=== PATIENT | male | born 1985 | race Caucasian/White ===

== ENCOUNTER 2024-12-14 11:22 | Emergency (ER) | payer OTHER, SELFPAY ==
[2024-12-14 11:29] VITALS: BP 150/91
[2024-12-14 12:01] VITALS: BP 151/75
--- NOTE | 2024-12-14 12:59 | ED.GENMED ---
History of Present Illness
General
Chief Complaint: Heart Rate Problem
Time Seen by Provider: 12/14/24 12:03
History of Present Illness
History of Present Illness:
39-year-old male with history of hypertension presenting to the emergency department for palpitations. Patient reports palpitations on and off for the past few days. Noticed the palpitations particularly last night. Denies any present
palpitations. Reports similar symptoms about 2 years ago, was seen in the hospital and recommended to follow-up with cardiology. He never followed up. Denies any known cardiac history. Does note that 2 weeks ago he recently started a new
preworkout. Denies associated chest pain. Denies difficulty breathing. Denies history of blood clot, recent surgery, recent travel. Denies additional acute medical complaints
Past History
Past History
ED Past Medical History: HTN
ED Past Surgical History: None
Social History
Tobacco: Non-smoker
Alcohol: None
Phy Exam
Physical Exam
Physical Exam:
General: Well-appearing, no clinical signs of dehydration, nontoxic and in no acute distress
HEENT: protecting airway
Neck: appears supple
CV: Normal heart rate, regular rhythm
Resp: No accessory muscle use, no increased work of breathing, lungs clear to auscultation bilaterally
Abd: No distention
Extremities: No deformities, no swelling
Neuro: alert, no focal neurologic deficit
: deferred
Rectal: deferred
Psych: Normal affect
Skin: Intact
Course
Orders/Labs/Results
Orders:
Orders
12/14/24 11:26
EKG [Electrocardiogram (*1)] Urgent
Reason for Study: Palpitations
EKG- Treatment ONCE
12/14/24 12:56
Basic Metabolic Panel Urgent
Complete Blood Count/With Diff Urgent
D-Dimer Urgent
Troponin I Urgent
Abnormal Lab Results
12/14/24
12:56
WBC 11.1 H 10^3/uL
(4.8-10.8)
Absolute Neuts (auto) 8.2 H 10^3/uL
(1.4-6.5)
Absolute Monos (auto) 0.8 H 10^3/uL
(0.1-0.6)
Lymphocytes % 16.9 L %
(20.5-51.1)
12/14/24 12:56
12/14/24 12:56
Vital Signs
Initial and Last Documented VS:
Initial Vital Signs
Temp Pulse Resp BP Pulse Ox
98.4 F 101 16 150/91 98
12/14/24 11:29 12/14/24 11:29 12/14/24 11:29 12/14/24 11:29 12/14/24 11:29
Last Documented Vital Signs
Temp Pulse Resp BP Pulse Ox
98.4 F 101 16 150/91 97
12/14/24 11:29 12/14/24 11:29 12/14/24 11:29 12/14/24 11:29 12/14/24 13:03
MDM/Problems Addressed
MDM/Problems Addressed:
39-year-old male presenting to the emergency department for palpitations. Vital signs on arrival significant for mild tachycardia which has since resolved without intervention.
On exam patient is resting comfortably, no acute distress. Currently denying any palpitations. EKG obtained, nonischemic, no arrhythmia. Low suspicion for any concerning etiology of symptoms. Does note that he recently started a new preworkout,
could be secondary to caffeine intake. Denies any present chest pain, without concern for ACS. Given presenting tachycardia, cannot satisfy PERC rule, however low suspicion without any PE risk factors. Will screen with laboratory analysis
including D-dimer. Will continue to monitor via groundwater monitoring technician.
14:00- Labs unremarkable. On reassessment patient remained stable. At this time feel that he is stable for discharge, however did encourage outpatient cardiac follow-up given reoccurrence of symptoms, may indicate need for Holter monitor. Also
advised that he stop taking the preworkout. Return precautions discussed and patient verbalized understanding
*Pulse Oximetry
SaO2: 97
Oxygen Mode of Delivery: Room air
Patient hypoxic: no
*EKG
Interpreted by ED Provider?: Yes
EKG Intrepretation Date: 12/14/24
EKG Intrepretation Time: 13:01
Interpretation: normal
Comparison EKG: no changes
Heart Rate: 103
Rate: tachycardiac
Rhythm: sinus
Fertile: normal axis
Interval: normal interval
QRS Pattern: normal QRS
Ischemia: no ischemia
*Critical Care Note
Total Time (30-74mins, 75-104mins- exclusive of procedures): Not Applicable
ED Attending Note
-
Portions of this chart may have been created with voice recognition software.� Occasional wrong word or��sound alike� substitutions may have occurred due to the inherent limitations of voice recognition software.
Discharge Plan
Departure
Patient Disposition: Home (Routine Discharge)
Date of Disposition: 12/14/24
Time of Disposition: 14:04
Patient with high blood pressure during this ER visit?: No
Condition: Good
Discharge Problem:
Heart palpitations
Instructions: Palpitations (DC)
Prescriptions:
No Action
lisinopril 10 mg Tablet
10 mg PO DAILY
Referrals:
Jorje Bliss MD [Active, Cardiology]
Activity Restrictions/Additional Instructions:
You were seen in the emergency department for palpitations
You were found to have reassuring EKG, vital signs, laboratory analysis. We recommend that you follow-up closely with a volunteer patient representative for further assessment and potential Holter monitoring.
Please follow-up closely with your primary care physician.
Return to the emergency department for any worsening of your symptoms, or any development of chest pain, difficulty breathing, abdominal pain with persistent vomiting and inability to tolerate food or liquid by mouth (concern for dehydration),
weakness, headache or confusion, fever greater than 100.4, or any additional symptoms that are concerning to you.
Thank you for choosing [facility].
Interventions
Interventions:
*Risk Screen - Suicide Last Done: 12/14/24 11:29
*General Assessment Last Done: 12/14/24 11:29
*Neglect/Abuse Screening Last Done: 12/14/24 11:29
*ED- Fall Risk Assessment Last Done: 12/14/24 11:29
*ED COVID-19 Vaccine History Last Done: 12/14/24 11:29
*ED Influenza Vaccine History Last Done: 12/14/24 11:29
ED- Cardiac Assessment Last Done: 12/14/24 12:47
ED- Pulmonary Assessment Last Done: 12/14/24 12:47
Discharge Date and Time
Print Language: SLOVAK
[2024-12-14 13:00] VITALS: BP 121/66
[2024-12-14 13:08] LABS: Hematocrit 45.1 % (39.0-52.0); Hemoglobin 15.4 g/dL (13.0-18.0); Mean Corp Hgb Conc. 34.1 g/dL (33.0-37.0); Mean Corpuscular Volume 89.1 fL (80.0-94.0); Nucleated Red Blood Cells % 0 % (-); Platelet Count 225 10^3/uL (130-400); Red Cell Dist. Width 12.3 % (11.5-14.5)
[2024-12-14 13:19] LABS: D-Dimer 0.29 ug/mlFEU (0.00-0.50)
[2024-12-14 13:24] LABS: Blood Urea Nitrogen 19 mg/dl (9-20); Calcium 10.0 mg/dl (8.4-10.2); Carbon Dioxide 26 mmol/L (22-30); Chloride 104 mmol/L (98-107); Glucose 91 mg/dl (70-99); Sodium 135 mmol/L (135-145); eGFR > 60.00
[2024-12-14 13:32] LABS: Troponin I < 0.012 ng/ml
[2024-12-14 14:00] VITALS: BP 113/76
== END 2024-12-14 14:23 | disposition home or self-care (01) ==
LOC: EMR 11:22
PROVIDERS: EMERGENCY PHYSICIAN Student in an Organized Health Care Education/Training Program; FAMILY PHYSICIAN Family Medicine
DX: R00.2 Palpitations (principal); I10 Essential (primary) hypertension
CPT/HCPCS: 99284; 80048; 84484; 85025; 85379; 93005

== ENCOUNTER → 2024-12-25 08:21 | Outpatient (REF) | payer OTHER, SELFPAY | LOC: RCS 08:21 | PROVIDERS: ATTENDING PHYSICIAN Family Medicine | DX: R00.2 Palpitations (principal); I10 Essential (primary) hypertension; E78.2 Mixed hyperlipidemia | CPT/HCPCS: 93225; 93226 ==